=== PATIENT | female | born 1955 | race Caucasian/White ===

== ENCOUNTER 2024-08-15 12:42 | Inpatient (IN) | payer MEDICARE, SELFPAY ==
[~2024-08-15 12:42] MED LIST: Iopamidol-370 76% 500 ML MDV (1 ML CHARGE) ONE
[2024-08-15] MEDS ORDERED: Morphine 2 MG/ML VIAL ONE (13:15)
[2024-08-15 13:27] LABS: Actual Bicarbonate (HCO3v) 25.6 mEq/L (22-28); Base Excess 1.6 mEq/L (-2.0 to +3.0); Calcium, Ionized (venous) 1.15 mmol/L (1.16-1.32); Chloride (VBG) 100 mmol/L (98-106); Hematocrit-VBG 43 % (36.0-47.0); Hemoglobin (Hb) 14.7 g/dL (11.7-16.1); Potassium (VBG) 3.79 mmol/L (3.70-5.30); Sodium 138 mmol/L (133-146); pH (venous) 7.441 (7.32-7.43)
[2024-08-15 13:29] LABS: #Basophils 0.03 10x3/uL (0.0-0.2); %Basophils 0.8 % (0.0-1.0); %Lymphocytes 16.4 % (21.0-51.0); %Monocytes 8.3 % (0.0-10.0); %Neutrophils 69.2 % (42.0-75.0); Hematocrit 42.1 % (36.0-47.0); Hemoglobin 14.2 g/dL (12.0-16.0); Mean Corpuscular HGB CONC 33.7 g/dL (32.0-36.0); Mean Corpuscular Volume 91.9 fL (78.0-98.0); Platelet Count 96 10x3/uL (130-400); RBC Distribution Width 14.4 % (11.5-14.5); Red Blood Cell (RBC) Count 4.58 mill/uL (4.20-5.40)
[2024-08-15 13:40] LABS: ALT (SGPT) 10 U/L (8-55); AST (SGOT) 16 U/L (5-34); Albumin 3.6 g/dL (3.4-4.8); Alkaline Phosphatase 224 U/L (40-110); Anion Gap 16 mmol/L (10-20); BUN (Urea Nitrogen) 8 mg/dL (9.8-20.1); Bilirubin, Total 0.9 mg/dL (0.2-1.2); Calc. Creatinine Clearance 0 mL/min (70-130); Carbon Dioxide 20 mmol/L (23-31); Chloride 103 mmol/L (98-107); Estimated GFR 95; Glucose 125 mg/dL (83-110); Lipase 14 U/L (8-78); Magnesium 2.1 mg/dL (1.6-2.6); Potassium 4.1 mmol/L (3.5-5.1); Protein, Total 6.6 g/dL (5.8-8.1); Sodium 135 mmol/L (136-145)
[2024-08-15 13:52] LABS: Platelet Adequacy Comment Platelets Decreased
[2024-08-15 17:33] VITALS: BMI 15.2
[2024-08-15] MEDS ORDERED: traMADol HCl 50 MG TAB PO PRN (19:20)
[2024-08-15] MEDS: Sodium Chloride 0.9% 1,000 ML IV SCH (19:46)
[2024-08-15] MEDS: Morphine 2 MG/ML VIAL SLOW IVP PRN (19:46)
[2024-08-15] MEDS: Calcium Carbonate 500 MG ChewTAB PO SCH (23:40)
[2024-08-16 05:31] LABS: #Basophils Less than 0.03 10x3/uL (0.0-0.2); %Basophils 0.7 % (0.0-1.0); %Eosinophils 7.2 % (0.0-10.0); %Lymphocytes 25.3 % (21.0-51.0); %Monocytes 9.4 % (0.0-10.0); Hematocrit 37.5 % (36.0-47.0); Hemoglobin 12.4 g/dL (12.0-16.0); Mean Corpuscular HGB CONC 33.1 g/dL (32.0-36.0); Mean Corpuscular Hemoglobin 30.8 pg (27.0-31.0); Mean Corpuscular Volume 93.1 fL (78.0-98.0); Platelet Count 78 10x3/uL (130-400); RBC Distribution Width 14.4 % (11.5-14.5); Red Blood Cell (RBC) Count 4.03 mill/uL (4.20-5.40)
[2024-08-16 05:50] LABS: Anion Gap 11 mmol/L (10-20); BUN (Urea Nitrogen) 7 mg/dL (9.8-20.1); Calc. Creatinine Clearance 46 mL/min (70-130); Carbon Dioxide 23 mmol/L (23-31); Chloride 107 mmol/L (98-107); Potassium 3.7 mmol/L (3.5-5.1); Sodium 137 mmol/L (136-145)
[2024-08-16 05:51] LABS: ALT (SGPT) 12 U/L (8-55); AST (SGOT) 15 U/L (5-34); Albumin 3.2 g/dL (3.4-4.8); Alkaline Phosphatase 208 U/L (40-110); Bilirubin, Total 0.6 mg/dL (0.2-1.2); Calcium 8.8 mg/dL (7.8-10.44); Estimated GFR 89; Globulin 2.6 g/dL (2.4-3.5); Glucose 107 mg/dL (83-110); Protein, Total 5.8 g/dL (5.8-8.1)
[2024-08-16] MEDS ORDERED: Ondansetron PF 4 MG/2 ML Vial IVP PRN (08:22)
[2024-08-16] MEDS: Pantoprazole 40 MG VIAL IVP SCH (10:16)
[2024-08-16 10:28] VITALS: BMI 15.2
[2024-08-16 11:09] LABS: INR-International Normal Ratio 1.1; Prothrombin Time 14.5 sec (12.0-14.7)
[2024-08-16 11:10] LABS: PTT 30.5 sec (22.9-36.1)
[2024-08-16] MEDS ORDERED: fentaNYL 50 mcg/mL 1 mL Vial ONE (11:28)
[2024-08-16] MEDS ORDERED: Midazolam HCl 2 mg/2 ml Vial ONE (11:29)
[2024-08-16] MEDS ORDERED: Lidocaine 1% w/Epinephrine 1:100K 20 ML VIAL ONE (11:29)
[2024-08-16] MEDS ORDERED: Iopamidol 370 76% 100 ML VIAL ONE (12:49)
[2024-08-16] MEDS: Mineral Oil ENEMA PR SCH (15:50)
[2024-08-16] MEDS: Polyethylene Glycol 3350 17 GM Packet PO SCH (20:19)
[2024-08-16] MEDS: Megestrol Acetate 800 MG/20 ML UDCUP PO SCH (20:19)
[2024-08-16] MEDS ORDERED: Enoxaparin 30 MG (0.3 mL) SYRINGE SC SCH (21:00)
[2024-08-17] MEDS: Acetaminophen 325 MG TAB PO PRN (00:46)
[2024-08-17 06:23] LABS: Hematocrit 34.7 % (36.0-47.0); Hemoglobin 11.4 g/dL (12.0-16.0); Mean Corpuscular HGB CONC 32.9 g/dL (32.0-36.0); Mean Corpuscular Hemoglobin 30.9 pg (27.0-31.0); Mean Platelet Volume 10.9 fL (7.4-10.4); Platelet Count 82 10x3/uL (130-400); RBC Distribution Width 14.5 % (11.5-14.5); Red Blood Cell (RBC) Count 3.69 mill/uL (4.20-5.40)
[2024-08-17 06:41] LABS: Anion Gap 9 mmol/L (10-20); BUN (Urea Nitrogen) 4 mg/dL (9.8-20.1); Calc. Creatinine Clearance 50 mL/min (70-130); Calcium 8.3 mg/dL (7.8-10.44); Carbon Dioxide 22 mmol/L (23-31); Chloride 108 mmol/L (98-107); Estimated GFR 94; Glucose 138 mg/dL (83-110); Potassium 3.6 mmol/L (3.5-5.1); Sodium 135 mmol/L (136-145)
[2024-08-17] MEDS: Folic Acid 1 MG TAB PO SCH (08:51)
[2024-08-17] MEDS: Multivit, Therapeutic 1 TAB PO SCH (08:51)
[2024-08-17] MEDS: Thiamine 100 MG TAB PO SCH (08:52)
[2024-08-17] MEDS: Megestrol Acetate 800 MG/20 ML UDCUP PO SCH (08:52)
[2024-08-18 06:04] LABS: Hematocrit 35.7 % (36.0-47.0); Hemoglobin 11.5 g/dL (12.0-16.0); Mean Corpuscular HGB CONC 32.2 g/dL (32.0-36.0); Mean Corpuscular Hemoglobin 30.7 pg (27.0-31.0); Mean Corpuscular Volume 95.5 fL (78.0-98.0); Mean Platelet Volume 11.2 fL (7.4-10.4); Platelet Count 75 10x3/uL (130-400); RBC Distribution Width 14.4 % (11.5-14.5); Red Blood Cell (RBC) Count 3.74 mill/uL (4.20-5.40)
[2024-08-18 07:12] LABS: Anion Gap 13 mmol/L (10-20); BUN (Urea Nitrogen) 7 mg/dL (9.8-20.1); Calc. Creatinine Clearance 47 mL/min (70-130); Calcium 8.4 mg/dL (7.8-10.44); Carbon Dioxide 23 mmol/L (23-31); Chloride 106 mmol/L (98-107); Estimated GFR 92; Glucose 158 mg/dL (83-110); Sodium 138 mmol/L (136-145)
[2024-08-18 12:06] VITALS: BP 136/64; TEMP 98
== END 2024-08-18 17:23 | disposition home or self-care (01) | DRG 435 ==
LOC: ERS 12:42 → T4-B 15:58 → OBSVTOIN 08-16 08:21
PROVIDERS: ADMIT Internal Medicine; ATTEND Internal Medicine
PROC: 0FB13ZX Excision of Right Lobe Liver, Percutaneous Approach, Diagnostic (ICD-10-PCS; principal; 2024-08-16)
DX: C25.0 Malignant neoplasm of head of pancreas (principal); E43 Unspecified severe protein-calorie malnutrition; Z68.1 Body mass index [BMI] 19.9 or less, adult; E87.1 Hypo-osmolality and hyponatremia; C78.7 Secondary malignant neoplasm of liver and intrahepatic bile duct; C78.89 Secondary malignant neoplasm of other digestive organs; Z66 Do not resuscitate; Z51.5 Encounter for palliative care; F17.210 Nicotine dependence, cigarettes, uncomplicated; I25.10 Atherosclerotic heart disease of native coronary artery without angina pectoris; K86.89 Other specified diseases of pancreas; D69.6 Thrombocytopenia, unspecified; J44.9 Chronic obstructive pulmonary disease, unspecified; R62.7 Adult failure to thrive; Z71.6 Tobacco abuse counseling; Z98.890 Other specified postprocedural states; Z91.148 Patient's other noncompliance with medication regimen for other reason; K59.00 Constipation, unspecified; G89.3 Neoplasm related pain (acute) (chronic)
CPT/HCPCS: 36415; 47000; 71045; 71260; 74177; 76942; 80048; 80053; 82805; 83605; 83690; 83735; 84484; 85025; 85027; 85610; 85730; 86301; 88307; 88333; 88334; 88341; 88342; 93005; 96374; 96376; 99152; 99153; G0378; J2250; J2272; J2470; J3010; J7030; Q9967

== ENCOUNTER 2024-08-31 02:36 | Observation (INO) | payer MEDICARE ==
[2024-08-31 04:49] VITALS: BMI 14.1
[2024-08-31] MEDS ORDERED: Morphine 4 MG/ML VIAL SLOW IVP PRN (05:11)
[2024-08-31] MEDS: Morphine 2 MG/ML VIAL SLOW IVP PRN (05:32)
[2024-08-31] MEDS: Ondansetron PF 4 MG/2 ML Vial IVP PRN (05:32)
[2024-08-31 06:19] LABS: #Basophils 0.05 10x3/uL (0.0-0.2); %Basophils 0.7 % (0.0-1.0); %Eosinophils 4.4 % (0.0-10.0); %Lymphocytes 12.1 % (21.0-51.0); %Monocytes 10.5 % (0.0-10.0); Hematocrit 40.3 % (36.0-47.0); Hemoglobin 12.9 g/dL (12.0-16.0); Mean Corpuscular Hemoglobin 31.6 pg (27.0-31.0); Mean Corpuscular Volume 98.8 fL (78.0-98.0); Mean Platelet Volume 10.7 fL (7.4-10.4); Platelet Count 123 10x3/uL (130-400); RBC Distribution Width 15.4 % (11.5-14.5); Red Blood Cell (RBC) Count 4.08 mill/uL (4.20-5.40)
[2024-08-31 06:34] LABS: ALT (SGPT) 14 U/L (8-55); AST (SGOT) 17 U/L (5-34); Albumin 3.5 g/dL (3.4-4.8); Alkaline Phosphatase 205 U/L (40-110); Anion Gap 18 mmol/L (10-20); BUN (Urea Nitrogen) 21 mg/dL (9.8-20.1); Bilirubin, Total 1.6 mg/dL (0.2-1.2); Calc. Creatinine Clearance 39 mL/min (70-130); Calcium 9.2 mg/dL (7.8-10.44); Carbon Dioxide 19 mmol/L (23-31); Chloride 105 mmol/L (98-107); Estimated GFR 82; Globulin 3.5 g/dL (2.4-3.5); Glucose 97 mg/dL (83-110); Potassium 4.2 mmol/L (3.5-5.1); Sodium 138 mmol/L (136-145)
[2024-08-31] MEDS: Sodium Chloride 0.9% 1,000 ML IV SCH (08:55)
[2024-09-01 06:08] LABS: ALT (SGPT) 10 U/L (8-55); AST (SGOT) 15 U/L (5-34); Albumin 3.1 g/dL (3.4-4.8); Alkaline Phosphatase 177 U/L (40-110); Anion Gap 15 mmol/L (10-20); BUN (Urea Nitrogen) 17 mg/dL (9.8-20.1); Bilirubin, Total 1.7 mg/dL (0.2-1.2); Calc. Creatinine Clearance 46 mL/min (70-130); Calcium 8.5 mg/dL (7.8-10.44); Carbon Dioxide 21 mmol/L (23-31); Chloride 109 mmol/L (98-107); Estimated GFR 94; Globulin 3.4 g/dL (2.4-3.5); Glucose 92 mg/dL (83-110); Potassium 3.9 mmol/L (3.5-5.1); Protein, Total 6.5 g/dL (5.8-8.1); Sodium 141 mmol/L (136-145)
[2024-09-01 06:10] LABS: #Basophils 0.05 10x3/uL (0.0-0.2); %Basophils 0.7 % (0.0-1.0); %Eosinophils 5.4 % (0.0-10.0); %Lymphocytes 10.2 % (21.0-51.0); %Monocytes 10.8 % (0.0-10.0); %Neutrophils 72.8 % (42.0-75.0); Hematocrit 38.3 % (36.0-47.0); Hemoglobin 12.2 g/dL (12.0-16.0); Mean Corpuscular HGB CONC 31.9 g/dL (32.0-36.0); Mean Corpuscular Volume 97.5 fL (78.0-98.0); Mean Platelet Volume 11.4 fL (7.4-10.4); Platelet Count 105 10x3/uL (130-400); RBC Distribution Width 15.5 % (11.5-14.5); Red Blood Cell (RBC) Count 3.93 mill/uL (4.20-5.40)
[2024-09-01] MEDS: Megestrol Acetate 800 MG/20 ML UDCUP PO SCH (08:08)
[2024-09-01] MEDS: traMADol HCl 50 MG TAB PO PRN (08:13)
[2024-09-01] MEDS ORDERED: Gabapentin 100 MG CAP PO PRN (14:01)
[2024-09-01 14:22] VITALS: BMI 14.1
[2024-09-01] MEDS: Morphine IR 10 MG/5 ML UDCUP PO PRN (16:54)
[2024-09-02] MEDS: Lidocaine 4% Patch TD SCH (11:05)
[2024-09-02] MEDS: Sodium Chloride 0.9% 1,000 ML IV SCH (11:08)
[2024-09-02] MEDS: Diclofenac 1% 50 GM TOPICAL GEL TP SCH (12:34)
[2024-09-02] MEDS: Morphine IR 10 MG/5 ML UDCUP PO PRN (16:29)
[2024-09-02] MEDS: Transdermal Patch Removal TOP SCH (21:21)
[2024-09-03 08:55] VITALS: BP 131/70; TEMP 98.6
[2024-09-03] MEDS: Morphine IR 10 MG/5 ML UDCUP PO SCH (09:41)
[2024-09-03] MEDS: Lidocaine 4% Patch TD SCH (09:42)
== END 2024-09-03 20:36 | disposition hospice, home (50) ==
LOC: INTOOBSV 04:25 → T4-A 04:25
PROVIDERS: ADMIT Internal Medicine; ATTEND Internal Medicine
DX: C78.89 Secondary malignant neoplasm of other digestive organs (principal); J44.9 Chronic obstructive pulmonary disease, unspecified; D69.6 Thrombocytopenia, unspecified; E43 Unspecified severe protein-calorie malnutrition; Z68.1 Body mass index [BMI] 19.9 or less, adult; Z87.891 Personal history of nicotine dependence; Z79.899 Other long term (current) drug therapy
CPT/HCPCS: 80053 ×2; 85025 ×2; J2272 ×2; J2405 ×2; J7030 ×3; 36415; 96374; 96375; 96376; G0378